=== PATIENT | male | born 1960 | race Caucasian/White ===

== ENCOUNTER → 2017-03-16 | Outpatient (CLI) | payer OTHER ==
[~2017-03-16] VITALS: Ht 175.3 cm; Wt 87.5 kg
[~2017-03-16] MED LIST: LIDOCAINE 2% INJ 100 MG/5 ML SDV (FOR ANES.) As Ordered ONE; NS 1,000 ML IV ONE; PHENYLephrine HCL 500 MCG/5 ML (100MCG/ML) SYRINGE (J2370) As Ordered ONE; PROPOFOL 200 MG/20 ML VIAL As Ordered ONE; [UNRECOGNIZED DRUG - OTHER] TD
--- NOTE | 2017-03-16 09:47 | ROOR ---
Patient Name: Gerson Guzman Procedure Date: 03/16/2017 9:21 AM Date of : 1960 Age: 56 Room: [facility] Gender: Male Note Status: Finalized Procedure: Colonoscopy Indications: Screening for colorectal malignant neoplasm Providers: Seun JONES MD Referring MD: Caity MAHER NP Requesting Provider: Medicines: Monitored Anesthesia Care Complications: No immediate complications. Procedure: Pre-Anesthesia Assessment: - The heart rate, respiratory rate, oxygen saturations, blood pressure, adequacy of pulmonary ventilation, and response to care were monitored throughout the procedure. The Colonoscope was introduced through the anus and advanced to the cecum, identified by appendiceal orifice and ileocecal valve. The colonoscopy was performed without difficulty. The patient tolerated the procedure well. The quality of the bowel preparation was good. Findings: The perianal and digital rectal examinations were normal. Two sessile polyps were found in the ascending colon. The polyps were 4 to 5 mm in size. These polyps were removed with a cold snare. Resection and retrieval were complete. Three pedunculated and sessile polyps were found in the sigmoid colon. The polyps were 5 to 6 mm in size. These polyps were removed with a cold snare. Resection and retrieval were complete. Small Internal Hemorrhoids. The exam was otherwise without abnormality on direct and retroflexion views. Impression: - Two 4 to 5 mm polyps in the ascending colon, removed with a cold snare. Resected and retrieved. - Three 5 to 6 mm polyps in the sigmoid colon, removed with a cold snare. Resected and retrieved. - Small Internal Hemorrhoids. - The examination was otherwise normal on direct and retroflexion views. Recommendation: - Repeat colonoscopy in 3 years for surveillance. Seun Jones MD Seun JONES MD 03/16/2017 9:46:45 AM This report has been signed electronically. Number of Addenda: 0 Note Initiated On: 03/16/2017 9:21 AM Estimated Blood Loss: Estimated blood loss: none.
[2017-03-16 10:05] VITALS: BP 135/82
== END ==
LOC: M OPP 08:19
PROVIDERS: ATTEND Internal Medicine Gastroenterology
DX: Z12.11 Encounter for screening for malignant neoplasm of colon (principal); D12.2 Benign neoplasm of ascending colon; D12.5 Benign neoplasm of sigmoid colon; K64.8 Other hemorrhoids; F17.210 Nicotine dependence, cigarettes, uncomplicated
CPT/HCPCS: 45385; 88305; J2370

== ENCOUNTER → 2017-05-10 | Outpatient (REF) | payer OTHER ==
[~2017-05-10] MED LIST changes: -LIDOCAINE 2% INJ 100 MG/5 ML SDV (FOR ANES.) As Ordered ONE; +NICO1KIT TD; -NS 1,000 ML IV ONE; -PHENYLephrine HCL 500 MCG/5 ML (100MCG/ML) SYRINGE (J2370) As Ordered ONE; -PROPOFOL 200 MG/20 ML VIAL As Ordered ONE; -[UNRECOGNIZED DRUG - OTHER] TD
[2017-05-10 13:52] LABS: MEAN CORPUSCULAR HEMOGLOBIN 33.2 pg (27.0-33.0); MEAN CORPUSCULAR HGB CONC 33.8 g/dl (32.0-36.5); MEAN CORPUSCULAR VOLUME 98.5 fl (80.0-96.0); RED CELL DISTRIBUTION WIDTH 12.6 % (11.5-14.5); WHITE BLOOD COUNT 5.6 K/mm3 (4.0-10.0)
[2017-05-10 14:41] LABS: ALBUMIN 3.5 GM/DL (3.2-5.2); ALBUMIN/GLOBULIN RATIO 1.21 (1.00-1.93); ALKALINE PHOSPHATASE 109 U/L (45-117); ALT/SGPT 17 U/L (12-78); ANION GAP 3 MEQ/L (8-16); AST/SGOT 10 U/L (15-37); BILIRUBIN,TOTAL 0.5 MG/DL (0.2-1.0); BLOOD UREA NITROGEN 13 MG/DL (7-18); CALCIUM LEVEL 8.9 MG/DL (8.5-10.1); CARBON DIOXIDE LEVEL 28 MEQ/L (21-32); CHLORIDE LEVEL 110 MEQ/L (98-107); CREATININE FOR GFR 0.93 MG/DL (0.70-1.30); GLOMERULAR FILTRATION RATE > 60.0 (>56); GLUCOSE, FASTING 100 MG/DL (70-105); POTASSIUM SERUM 4.7 MEQ/L (3.5-5.1); SODIUM LEVEL 141 MEQ/L (136-145); TOTAL PROTEIN 6.4 GM/DL (6.4-8.2)
== END ==
LOC: M LAB REF 13:29
PROVIDERS: ATTEND Nurse Practitioner Family
DX: Z12.11 Encounter for screening for malignant neoplasm of colon (principal); Z13.29 Encounter for screening for other suspected endocrine disorder; Z13.0 Encounter for screening for diseases of the blood and blood-forming organs and certain disorders involving the immune mechanism

== ENCOUNTER 2017-10-19 22:38 | Emergency (ER) | payer OTHER ==
[~2017-10-19] VITALS: Ht 175.3 cm; Wt 84.1 kg
[2017-10-20] MEDS ORDERED: hydrOXYzine 25 MG TAB PO ONE (04:30)
[2017-10-20] MEDS ORDERED: HYDR-3363 PO (04:31)
[2017-10-20 04:36] VITALS: BP 149/92
== END 2017-10-20 04:42 | disposition home or self-care (01) ==
LOC: M ED 22:38
DX: L29.9 Pruritus, unspecified (principal)

== ENCOUNTER 2017-11-03 00:29 | Emergency (ER) | payer OTHER ==
[2017-11-03] MEDS: predniSONE 20 MG TAB PO (01:17)
[2017-11-03] MEDS: diphenhydrAMINE 25 MG CAP PO (01:17)
== END 2017-11-03 01:46 | disposition home or self-care (01) ==
LOC: M ED 00:29
DX: L21.9 Seborrheic dermatitis, unspecified (principal)
CPT/HCPCS: 99282

== ENCOUNTER → 2017-12-06 | Outpatient (REF) | payer OTHER ==
[2017-12-06 19:52] LABS: BASO % 0.9 % (0.0-1.0); EOS # 0.2 10^3/uL (0.0-0.50); EOS % 3.3 % (0.0-3.0); HEMATOCRIT 46.5 % (42.0-52.0); HEMOGLOBIN 15.5 g/dl (14.0-18.0); IMMATURE GRANULOCYTE % 0.7 % (0-3.0); LYMPH # 1.8 10^3/uL (1.5-4.5); LYMPH % 40.2 % (24.0-44.0); MEAN CORPUSCULAR HEMOGLOBIN 31.8 pg (27.0-33.0); MEAN CORPUSCULAR HGB CONC 33.3 g/dl (32.0-36.5); MEAN CORPUSCULAR VOLUME 95.5 fl (80.0-96.0); MONO # 0.5 10^3/uL (0.0-0.8); MONO % 11.9 % (0.0-5.0); PLATELET COUNT, AUTOMATED 216 10^3/uL (150-450); RED BLOOD COUNT 4.87 10^6/uL (4.30-6.10); RED CELL DISTRIBUTION WIDTH 12.5 % (11.5-14.5); WHITE BLOOD COUNT 4.6 10^3/uL (4.0-10.0)
[2017-12-06 20:46] LABS: ALBUMIN 3.7 GM/DL (3.2-5.2); ALBUMIN/GLOBULIN RATIO 1.12 (1.00-1.93); ALKALINE PHOSPHATASE 115 U/L (45-117); ALT/SGPT 19 U/L (12-78); ANION GAP 8 MEQ/L (8-16); AST/SGOT 21 U/L (7-37); BILIRUBIN,TOTAL 0.6 MG/DL (0.2-1.0); BLOOD UREA NITROGEN 5 MG/DL (7-18); CARBON DIOXIDE LEVEL 27 MEQ/L (21-32); CHLORIDE LEVEL 105 MEQ/L (98-107); CREATININE FOR GFR 0.92 MG/DL (0.70-1.30); GLOMERULAR FILTRATION RATE > 60.0 (>56); GLUCOSE, FASTING 81 MG/DL (70-100); POTASSIUM SERUM 5.1 MEQ/L (3.5-5.1); SODIUM LEVEL 140 MEQ/L (136-145)
[2017-12-06 21:23] LABS: ERYTHROCYTE SEDIMENTATION RATE 6 mm/hr (0-20)
== END ==
LOC: M LAB REF 19:05
DX: K28.2 Acute gastrojejunal ulcer with both hemorrhage and perforation (principal)
CPT/HCPCS: 85652

== ENCOUNTER → 2017-12-17 | Outpatient (CLI) | payer OTHER ==
[2017-12-17 11:05] LABS: RHEUMATOID FACTOR QUANT < 10.0 IU/ML (0-15.0)
[2017-12-17 11:05] LABS: CPK CREATINE PHOSPHOKINASE 62 U/L (39-308)
[2017-12-18 14:11] LABS: ALDOLASE 4.6 U/L (3.3-10.3)
[2017-12-18 14:11] LABS: ANTINUCLEAR ANTIBODIES DIRECT Negative (Negative)
== END ==
LOC: M LAB 09:59
DX: L28.2 Other prurigo (principal)
CPT/HCPCS: 82550

== ENCOUNTER 2018-01-17 01:28 | Emergency (ER) | payer OTHER | END 2018-01-17 05:14 | disposition left against medical advice (07) | LOC: M ED 05:14 | DX: Z53.29 Procedure and treatment not carried out because of patient's decision for other reasons (principal) ==

== ENCOUNTER → 2018-04-30 | Outpatient (REF) | LOC: M SMT 09:10 | DX: Z02.71 Encounter for disability determination (principal) ==

== ENCOUNTER → 2020-10-07 | Outpatient (REF) | payer OTHER ==
[~2020-10-07] MED LIST changes: +BENA25CA4 PO; +CEPH500C; +FLUO0.0112; +HYDR-3363; +HYDR-3363 PO; +PRED20TA; +PRED20TA PO
[2020-10-07 11:57] LABS: BASO % 0.5 % (0.0-1.0); EOS # 0.2 10^3/uL (0.0-0.5); EOS % 2.2 % (0.0-3.0); HEMATOCRIT 43.7 % (42.0-52.0); HEMOGLOBIN 14.1 g/dl (13.5-17.5); LYMPH # 2.3 10^3/uL (1.5-5.0); LYMPH % 28.8 % (24.0-44.0); MEAN CORPUSCULAR HEMOGLOBIN 31.5 pg (27.0-33.0); MEAN CORPUSCULAR HGB CONC 32.3 g/dl (32.0-36.5); MEAN CORPUSCULAR VOLUME 97.8 fl (80.0-96.0); MONO # 0.7 10^3/uL (0.0-0.8); MONO % 8.8 % (0.0-5.0); NEUTROPHILS # 4.7 10^3/uL (1.5-8.5); NEUTROPHILS % 59.3 % (36.0-66.0); PLATELET COUNT, AUTOMATED 185 10^3/uL (150-450); RED BLOOD COUNT 4.47 10^6/uL (4.30-6.10); WHITE BLOOD COUNT 7.9 10^3/uL (4.0-10.0)
[2020-10-07 14:15] LABS: ALBUMIN 3.7 GM/DL (3.2-5.2); ALT/SGPT 17 U/L (12-78); BILIRUBIN,TOTAL 0.5 MG/DL (0.2-1.0); BLOOD UREA NITROGEN 11 MG/DL (7-18); CALCIUM LEVEL 9.3 MG/DL (8.8-10.2); CARBON DIOXIDE LEVEL 29 MEQ/L (21-32); CHLORIDE LEVEL 108 MEQ/L (98-107); CHOLESTEROL LEVEL 218 MG/DL (<200); CHOLESTEROL RISK RATIO 4.541 (<5); CREATININE FOR GFR 1.01 MG/DL (0.70-1.30); FREE T4 1.16 NG/DL (0.76-1.46); GLOMERULAR FILTRATION RATE > 60.0 (>49); GLUCOSE, FASTING 88 MG/DL (70-100); HDL CHOLESTEROL 48 MG/DL (>40); LDL CHOLESTEROL 144 MG/DL (<100); NON-HDL-C 170 MG/DL; POTASSIUM SERUM 4.4 MEQ/L (3.5-5.1); SODIUM LEVEL 141 MEQ/L (136-145); TOTAL 25(OH) VITAMIN D 18.3 NG/ML (30.0-100.0); TOTAL PROTEIN 6.6 GM/DL (6.4-8.2); TRIGLYCERIDES LEVEL 131 MG/DL (<150)
[2020-10-07 15:56] LABS: HEMOGLOBIN A1c 5.5 %
[2020-10-08 23:10] LABS: PSA TOTAL 1.1 ng/mL (0.0-4.0)
== END ==
LOC: M LAB REF 11:15
PROVIDERS: ATTEND Nurse Practitioner Family
DX: F17.200 Nicotine dependence, unspecified, uncomplicated (principal); Z13.9 Encounter for screening, unspecified; Z13.228 Encounter for screening for other metabolic disorders

== ENCOUNTER 2020-10-16 05:23 | Emergency (ER) | payer OTHER ==
[~2020-10-16] VITALS: Ht 175.3 cm; Wt 87.0 kg
[2020-10-16] MEDS ORDERED: LIDOCAINE 1% MDV 20ML VIAL SC ONE (06:30)
[2020-10-16] MEDS ORDERED: BOOSTRIX/ADACEL VACCINE (DIPHTH/PERTUSS/ACELL/TETANUS) 0.5ML SYR IM ONE (06:30)
--- NOTE | 2020-10-16 07:00 | REPVR ---
PROCEDURE INFORMATION: Exam: CT Head Without Contrast Exam date and time: 10/16/2020 5:37 AM Age: 59 years old Clinical indication: Injury or trauma; Other: Hit by falling pallet; Work related; Concussion/head injury and laceration; Without residual foreign body; Forehead and other: Bridge of nose TECHNIQUE: Imaging protocol: Computed tomography of the head without contrast. Radiation optimization: All CT scans at this facility use at least one of these dose optimization techniques: automated exposure control; mA and/or kV adjustment per patient size (includes targeted exams where dose is matched to clinical indication); or iterative reconstruction. COMPARISON: No relevant prior studies available. FINDINGS: Brain: The cortical/white matter interfaces are preserved throughout the brain. There is no evidence of intracranial hemorrhage. Cerebral ventricles: The ventricular system is normal in size and configuration. Bones/joints: No acute fractures of the skull are identified. The nasal bones are not optimally assessed on this exam, but no definite fracture is identified. Paranasal sinuses: There is complete opacification of the partially visualized bilateral maxillary sinuses. The bilateral maxillary sinuses appear somewhat underdeveloped. The medial lamb appear incomplete, likely from previous medial antrectomies. Mastoid air cells: The mastoid air cells are clear. Orbital cavity: The orbits appear unremarkable. Soft tissues: There is soft tissue swelling at the nasoethmoid region. IMPRESSION: 1. No evidence of acute intracranial injury. 2. Soft tissue swelling in the nasoethmoid region consistent with superficial hematoma/contusion. No definite associated fracture, but the nasal and facial bones are not optimally assessed on this exam. 3. Complete opacification of the partially visualized bilateral maxillary sinuses, probably related to chronic sinusitis. Electronically signed by: Brooke Wall On 10/16/2020 07:00:24 AM
[2020-10-16] MEDS ORDERED: KEFL500C17 PO (07:24)
[2020-10-16] MEDS ORDERED: NEOSPORIN OINT 0.9 GM PKT TOP ONE (07:30)
[2020-10-16] MEDS ORDERED: CEPHALEXIN 500 MG CAP PO ONE (07:30)
[2020-10-16 08:46] VITALS: BP 112/70
== END 2020-10-16 09:14 | disposition home or self-care (01) ==
LOC: M ED 05:23
DX: S01.21XA Laceration without foreign body of nose, initial encounter (principal); S00.81XA Abrasion of other part of head, initial encounter; W22.8XXA Striking against or struck by other objects, initial encounter; Y92.89 Other specified places as the place of occurrence of the external cause; Y99.0 Civilian activity done for income or pay

== ENCOUNTER 2020-10-27 10:29 | Emergency (ER) | payer OTHER ==
[~2020-10-27] VITALS: Ht 175.3 cm; Wt 84.5 kg
[2020-10-27 10:29] VITALS: BP 136/89
[~2020-10-27 10:29] MED LIST changes: +KEFL500C17 PO
== END 2020-10-27 11:35 | disposition home or self-care (01) ==
LOC: M ED 10:29
DX: Z48.02 Encounter for removal of sutures (principal); F17.210 Nicotine dependence, cigarettes, uncomplicated

== ENCOUNTER → 2021-08-02 | Outpatient (CLI) | payer OTHER ==
--- NOTE | 2021-08-02 12:16 | REP ---
INDICATION: NICOTINE DEPEND. COMPARISON: 12/13/2017 the only prior and also low-dose screening CT of the lungs TECHNIQUE: Axial noncontrast images from the thoracic inlet to the upper abdomen using low-dose lung screening technique (LDCT). As per the protocol only lung window images were sent to the read station for interpretation. FINDINGS: There is minimal biapical pleuroparenchymal scarring status quo. No new abnormal nodules, masses, or opacities have developed. There is mild cylindrical bronchiectasis status quo. Grossly, the mediastinum and pulmonary kadie are unchanged. Grossly, the imaged upper abdomen and imaged osseous structures are unchanged. IMPRESSION: Stable lung rads category [address] low-dose screening CT examination of the lungs. Follow-up as per the revised Fleischner society criteria. <Electronically signed by Noe Castaneda > 08/02/21 [id number]
== END ==
LOC: M RAD 11:23
PROVIDERS: ATTEND Nurse Practitioner Family
DX: Z12.2 Encounter for screening for malignant neoplasm of respiratory organs (principal); F17.200 Nicotine dependence, unspecified, uncomplicated

== ENCOUNTER → 2022-04-11 | Outpatient (REF) | payer OTHER ==
[2022-04-11 12:53] LABS: BASO # 0.1 10^3/uL (0.0-0.2); BASO % 0.9 % (0.0-1.0); EOS # 0.1 10^3/uL (0.0-0.5); EOS % 2.2 % (0.0-3.0); HEMATOCRIT 45.9 % (42.0-52.0); HEMOGLOBIN 15.2 g/dl (13.5-17.5); LYMPH # 1.8 10^3/uL (1.5-5.0); LYMPH % 33.9 % (24.0-44.0); MEAN CORPUSCULAR HEMOGLOBIN 33.5 pg (27.0-33.0); MEAN CORPUSCULAR HGB CONC 33.1 g/dl (32.0-36.5); MEAN CORPUSCULAR VOLUME 101.1 fl (80.0-96.0); MONO # 0.6 10^3/uL (0.0-0.8); MONO % 10.2 % (2.0-8.0); NEUTROPHILS # 2.8 10^3/uL (1.5-8.5); NEUTROPHILS % 52.2 % (36.0-66.0); PLATELET COUNT, AUTOMATED 173 10^3/uL (150-450); RED BLOOD COUNT 4.54 10^6/uL (4.30-6.10); WHITE BLOOD COUNT 5.4 10^3/uL (4.0-10.0)
[2022-04-11 13:36] LABS: ALBUMIN 3.5 GM/DL (3.2-5.2); ALT/SGPT 20 U/L (12-78); BILIRUBIN,TOTAL 0.5 MG/DL (0.2-1.0); BLOOD UREA NITROGEN 9 MG/DL (7-18); CALCIUM LEVEL 8.7 MG/DL (8.8-10.2); CARBON DIOXIDE LEVEL 27 MEQ/L (21-32); CHLORIDE LEVEL 111 MEQ/L (98-107); CHOLESTEROL LEVEL 172 MG/DL (<200); CHOLESTEROL RISK RATIO 3.822 (<5); CREATININE FOR GFR 0.86 MG/DL (0.70-1.30); GLOMERULAR FILTRATION RATE > 60.0 (>49); GLUCOSE, FASTING 96 MG/DL (70-100); HDL CHOLESTEROL 45 MG/DL (>40); LDL CHOLESTEROL 108 MG/DL (<100); NON-HDL-C 127 MG/DL; POTASSIUM SERUM 4.4 MEQ/L (3.5-5.1); SODIUM LEVEL 141 MEQ/L (136-145); TOTAL PROTEIN 6.6 GM/DL (6.4-8.2); TRIGLYCERIDES LEVEL 95 MG/DL (<150)
== END ==
LOC: M SFHCADAM 08:02
PROVIDERS: ATTEND Family Medicine
DX: Z00.00 Encounter for general adult medical examination without abnormal findings (principal); E55.9 Vitamin D deficiency, unspecified

== ENCOUNTER → 2022-08-24 | Outpatient (CLI) | payer OTHER | LOC: M RAD 08:42 | PROVIDERS: ATTEND Family Medicine | DX: Z12.2 Encounter for screening for malignant neoplasm of respiratory organs (principal); F17.210 Nicotine dependence, cigarettes, uncomplicated; R91.8 Other nonspecific abnormal finding of lung field ==

== ENCOUNTER → 2022-10-02 | Outpatient (CLI) | payer OTHER ==
[~2022-10-02] MED LIST changes: +ATOR1TAB21 PO; +VITA200032 PO
== END ==
LOC: M LABSMTC 10:00
PROVIDERS: ATTEND Anesthesiology
DX: Z01.812 Encounter for preprocedural laboratory examination (principal); Z20.822 Contact with and (suspected) exposure to COVID-19

== ENCOUNTER 2022-10-05 08:21 | Day surgery (SDC) | payer OTHER ==
[~2022-10-05] VITALS: Ht 175.3 cm; Wt 89.3 kg
[~2022-10-05 08:21] MED LIST changes: +NS 1,000 ML IV ONE
[2022-10-05] MEDS ORDERED: propofoL 200 MG/20 ML VIAL As Ordered ONE (10:06)
[2022-10-05 10:42] VITALS: BP 120/76
== END 2022-10-05 10:53 | disposition home or self-care (01) ==
LOC: M OPP 08:21
PROVIDERS: ATTEND Internal Medicine Gastroenterology
DX: Z12.11 Encounter for screening for malignant neoplasm of colon (principal); Z86.010 Personal history of colon polyps; D12.5 Benign neoplasm of sigmoid colon; D12.3 Benign neoplasm of transverse colon; D12.0 Benign neoplasm of cecum; K64.8 Other hemorrhoids; F17.200 Nicotine dependence, unspecified, uncomplicated; Z79.02 Long term (current) use of antithrombotics/antiplatelets; E78.00 Pure hypercholesterolemia, unspecified

== ENCOUNTER → 2023-08-31 | Outpatient (REF) | payer OTHER ==
[~2023-08-31] MED LIST changes: -NS 1,000 ML IV ONE
[2023-08-31 13:36] LABS: BASO # 0.1 10^3/uL (0.0-0.2); BASO % 0.9 % (0.0-1.0); EOS # 0.1 10^3/uL (0.0-0.5); EOS % 2.2 % (0.0-3.0); HEMATOCRIT 46.7 % (42.0-52.0); HEMOGLOBIN 15.5 g/dl (13.5-17.5); LYMPH # 2.1 10^3/uL (1.5-5.0); LYMPH % 37.6 % (24.0-44.0); MEAN CORPUSCULAR HEMOGLOBIN 32.8 pg (27.0-33.0); MEAN CORPUSCULAR HGB CONC 33.2 g/dl (32.0-36.5); MEAN CORPUSCULAR VOLUME 98.9 fl (80.0-96.0); MONO # 0.6 10^3/uL (0.0-0.8); MONO % 11.5 % (2.0-8.0); NEUTROPHILS # 2.6 10^3/uL (1.5-8.5); NEUTROPHILS % 47.3 % (36.0-66.0); PLATELET COUNT, AUTOMATED 191 10^3/uL (150-450); RED BLOOD COUNT 4.72 10^6/uL (4.30-6.10); WHITE BLOOD COUNT 5.6 10^3/uL (4.0-10.0)
[2023-08-31 13:46] LABS: ALBUMIN 3.7 G/DL (3.2-5.2); ALKALINE PHOSPHATASE 93 U/L (46-116); ALT/SGPT 19 U/L (7.0-40); AST/SGOT 16 U/L (<34); BILIRUBIN,TOTAL 0.5 MG/DL (0.3-1.2); BLOOD UREA NITROGEN 10 MG/DL (9-23); CALCIUM LEVEL 9.2 MG/DL (8.3-10.6); CARBON DIOXIDE LEVEL 29 MMOL/L (20-31); CHLORIDE LEVEL 104 MMOL/L (98-107); CHOLESTEROL LEVEL 163 MG/DL (<200); CHOLESTEROL RISK RATIO 4.22 (<5); CREATININE FOR GFR 0.88 MG/DL (0.70-1.30); GLOMERULAR FILTRATION RATE > 60.0 (>49); GLUCOSE, FASTING 76 MG/DL (74-106); HDL CHOLESTEROL 38.6 MG/DL (>40); LDL CHOLESTEROL 104.8 MG/DL (<100); NON-HDL-C 124.4 MG/DL; POTASSIUM SERUM 4.3 MMOL/L (3.5-5.1); SODIUM LEVEL 138 MMOL/L (136-145); THYROID STIMULATING HORMONE 1.604 uIU/ML (0.55-4.78); TOTAL PROTEIN 6.5 G/DL (5.7-8.2); TRIGLYCERIDES LEVEL 98 MG/DL (<150)
== END ==
LOC: M LABDRWAD 12:53
PROVIDERS: ATTEND Family Medicine
DX: Z00.00 Encounter for general adult medical examination without abnormal findings (principal)

== ENCOUNTER → 2023-11-12 | Outpatient (CLI) | payer OTHER | LOC: M RAD 07:59 | PROVIDERS: ATTEND Family Medicine | DX: F17.210 Nicotine dependence, cigarettes, uncomplicated (principal) ==

== ENCOUNTER → 2025-01-15 | Outpatient (REF) | payer MEDICARE ==
[2025-01-15 14:15] LABS: BASO # 0.1 10^3/uL (0.0-0.2); BASO % 0.8 % (0.0-1.0); EOS # 0.2 10^3/uL (0.0-0.5); EOS % 2.5 % (0.0-3.0); HEMATOCRIT 46.8 % (42.0-52.0); HEMOGLOBIN 15.4 g/dl (13.5-17.5); LYMPH # 1.7 10^3/uL (1.5-5.0); LYMPH % 26.8 % (24.0-44.0); MEAN CORPUSCULAR HEMOGLOBIN 32.9 pg (27.0-33.0); MEAN CORPUSCULAR HGB CONC 32.9 g/dl (32.0-36.5); MONO # 0.6 10^3/uL (0.0-0.8); NEUTROPHILS # 3.7 10^3/uL (1.5-8.5); NEUTROPHILS % 59.4 % (36.0-66.0); PLATELET COUNT, AUTOMATED 171 10^3/uL (150-450); RED BLOOD COUNT 4.68 10^6/uL (4.30-6.10); WHITE BLOOD COUNT 6.3 10^3/uL (4.0-10.0)
[2025-01-15 14:23] LABS: ALBUMIN 3.4 G/DL (3.2-5.2); ALKALINE PHOSPHATASE 92 U/L (40-129); ALT/SGPT 13 U/L (7.0-40); AST/SGOT 13 U/L (<34); BILIRUBIN,TOTAL 0.3 MG/DL (0.3-1.2); BLOOD UREA NITROGEN 9 MG/DL (9-23); CALCIUM LEVEL 9.4 MG/DL (8.3-10.6); CARBON DIOXIDE LEVEL 29 MMOL/L (20-31); CHLORIDE LEVEL 110 MMOL/L (98-107); CHOLESTEROL LEVEL 162 MG/DL (<200); CHOLESTEROL RISK RATIO 3.89 (<5); GLOMERULAR FILTRATION RATE > 60.0 (>49); GLUCOSE, FASTING 86 MG/DL (74-106); HDL CHOLESTEROL 41.6 MG/DL (>40); LDL CHOLESTEROL 101.6 MG/DL (<100); NON-HDL-C 120.4 MG/DL; POTASSIUM SERUM 4.7 MMOL/L (3.5-5.1); SODIUM LEVEL 148 MMOL/L (136-145); TOTAL PROTEIN 6.4 G/DL (5.7-8.2); TRIGLYCERIDES LEVEL 94 MG/DL (<150)
[2025-01-15 14:24] LABS: FREE T4 1.03 NG/DL (0.89-1.76)
== END ==
LOC: M SFHCADAM 07:55
PROVIDERS: ATTEND Family Medicine
DX: Z00.00 Encounter for general adult medical examination without abnormal findings (principal); Z79.899 Other long term (current) drug therapy

== ENCOUNTER → 2025-01-16 | Outpatient (CLI) | payer MEDICARE | LOC: M RAD 07:59 | PROVIDERS: ATTEND Family Medicine | DX: Z13.6 Encounter for screening for cardiovascular disorders (principal) ==

== ENCOUNTER → 2025-01-22 | Outpatient (CLI) | payer MEDICARE | LOC: M RAD 06:49 | PROVIDERS: ATTEND Family Medicine | DX: Z12.2 Encounter for screening for malignant neoplasm of respiratory organs (principal); F17.210 Nicotine dependence, cigarettes, uncomplicated ==

== ENCOUNTER → 2025-02-04 | Outpatient (CLI) | payer MEDICARE | LOC: M CARPUL 07:28 | PROVIDERS: ATTEND Family Medicine | DX: J44.9 Chronic obstructive pulmonary disease, unspecified (principal) ==

== ENCOUNTER 2025-10-24 13:20 | Inpatient (IN) | payer MEDICARE ==
[~2025-10-24] VITALS: Ht 180.3 cm; Wt 97.9 kg
[2025-10-24] MEDS: ALBUTEROL SULFATE 2.5 MG/0.5 ML INH CONCENTRATE NEB SOLN NEB ONE (14:28)
[2025-10-24] MEDS: IPRATROPIUM 0.5 MG/ALBUTEROL 2.5 MG INH SOL UD 3 ML NEB ONE (14:29)
[2025-10-24 14:30] LABS: BASO # 0.0 10^3/uL (0.0-0.2); BASO % 0.3 % (0.0-1.0); EOS # 0.1 10^3/uL (0.0-0.5); EOS % 1.0 % (0.0-3.0); LYMPH # 1.1 10^3/uL (1.5-5.0); LYMPH % 15.8 % (24.0-44.0); MONO # 0.6 10^3/uL (0.0-0.8); MONO % 8.3 % (2.0-8.0); NEUTROPHILS # 5.3 10^3/uL (1.5-8.5); NEUTROPHILS % 73.8 % (36.0-66.0); PLATELET COUNT, AUTOMATED 291 10^3/uL (150-450)
[2025-10-24 15:05] LABS: ALT/SGPT 49 U/L (7.0-40); AST/SGOT 50 U/L (<34); CALCIUM LEVEL 9.0 MG/DL (8.3-10.6); CARBON DIOXIDE LEVEL 29 MMOL/L (20-31); CHLORIDE LEVEL 103 MMOL/L (98-107); CREATININE FOR GFR 0.74 MG/DL (0.70-1.30); GLOMERULAR FILTRATION RATE > 90.0 (>49); POTASSIUM SERUM 4.3 MMOL/L (3.5-5.1); SODIUM LEVEL 138 MMOL/L (136-145)
[2025-10-24 15:07] LABS: THYROXINE (T4) 8.6 UG/DL (4.5-10.9)
[2025-10-24] MEDS ORDERED: ISOVUE-370 76% 100 ML VIAL As Ordered ONE (16:39)
[2025-10-24] MEDS ORDERED: ACET-683 PO (19:07)
[2025-10-24] MEDS ORDERED: ATOR40TA75 PO (19:07)
[2025-10-24] MEDS ORDERED: HOME MED LIST COMPLETE! XX SCH (19:10)
[2025-10-24] MEDS ORDERED: IPRATROPIUM 0.5 MG/ALBUTEROL 2.5 MG INH SOL UD 3 ML NEB PRN (19:40)
[2025-10-24] MEDS ORDERED: ACETAMINOPHEN 325 MG TAB PO PRN (19:40)
[2025-10-24] MEDS ORDERED: MOM 30 ML SUSPENSION UDC PO PRN (19:40)
[2025-10-24] MEDS ORDERED: traZODone 50 MG TAB PO PRN (19:40)
[2025-10-24] MEDS ORDERED: ONDANSETRON 4MG/2ML VIAL IV PRN (19:40)
[2025-10-24] MEDS: cefTRIAXone SOD 2 GM in DEXTROSE 5% (D5W) ADV/MINI-BAG 50 ML IV SCH (20:33)
[2025-10-24] MEDS: NS (Normal Saline) 0.9% 1,000 ML IV SCH (20:33)
[2025-10-24 21:08] VITALS: BP 134/74; TEMP 98; O2SAT 96
[2025-10-24] MEDS: DOXYCYCLINE HYCLATE 100 MG in DEXTROSE 5% (D5W) MINI-BAG PLU 100 ML IV SCH (21:42)
[2025-10-25 04:56] VITALS: BP 111/70; TEMP 98; O2SAT 90
[2025-10-25 05:55] LABS: PLATELET COUNT, AUTOMATED 279 10^3/uL (150-450)
[2025-10-25 06:26] LABS: ALT/SGPT 43 U/L (7.0-40); AST/SGOT 35 U/L (<34); CALCIUM LEVEL 8.8 MG/DL (8.3-10.6); CARBON DIOXIDE LEVEL 29 MMOL/L (20-31); CHLORIDE LEVEL 104 MMOL/L (98-107); CREATININE FOR GFR 0.75 MG/DL (0.70-1.30); GLOMERULAR FILTRATION RATE > 90.0 (>49); MAGNESIUM LEVEL 2.1 MG/DL (1.8-2.4); POTASSIUM SERUM 4.4 MMOL/L (3.5-5.1); SODIUM LEVEL 140 MMOL/L (136-145)
[2025-10-25] MEDS ORDERED: IPRATROPIUM 0.5 MG/ALBUTEROL 2.5 MG INH SOL UD 3 ML NEB PRN (07:05)
[2025-10-25] MEDS: IPRATROPIUM 0.5 MG/ALBUTEROL 2.5 MG INH SOL UD 3 ML NEB SCH (07:56)
[2025-10-25 08:08] LABS: HEPATITIS C VIRUS ABY INDEX 0.10 INDEX (<0.8)
[2025-10-25] MEDS: PANTOPRAZOLE 40MG TAB PO SCH (08:52)
[2025-10-25] MEDS: ENOXAPARIN 40 MG/0.4 ML SYRINGE (J1650 PER 10MG) SC SCH (08:52)
[2025-10-25] MEDS ORDERED: OSELTAMIVIR PHOSPHATE 75 MG CAP PO SCH (09:00)
[2025-10-25] MEDS: guaiFENesin ER TABLET 600 MG TAB PO SCH (09:56)
[2025-10-25 12:00] VITALS: BP 122/71; TEMP 98.3; O2SAT 94
[2025-10-25 19:49] VITALS: BP 113/57; TEMP 98.7; O2SAT 92
[2025-10-25] MEDS: DOXYCYCLINE HYCLATE 100 MG TABLET PO SCH (20:13)
[2025-10-26 04:07] VITALS: BP 110/62; TEMP 98.4; O2SAT 95
[2025-10-26 04:27] VITALS: O2SAT 91
[2025-10-26 06:55] LABS: BASO # 0.0 10^3/uL (0.0-0.2); BASO % 0.1 % (0.0-1.0); EOS # 0.0 10^3/uL (0.0-0.5); EOS % 0.0 % (0.0-3.0); LYMPH # 1.0 10^3/uL (1.5-5.0); LYMPH % 10.1 % (24.0-44.0); MONO # 0.3 10^3/uL (0.0-0.8); MONO % 3.3 % (2.0-8.0); NEUTROPHILS # 8.3 10^3/uL (1.5-8.5); NEUTROPHILS % 85.9 % (36.0-66.0); PLATELET COUNT, AUTOMATED 257 10^3/uL (150-450)
[2025-10-26 08:00] LABS: ALT/SGPT 34 U/L (7.0-40); AST/SGOT 25 U/L (<34); CALCIUM LEVEL 8.8 MG/DL (8.3-10.6); CARBON DIOXIDE LEVEL 28 MMOL/L (20-31); CHLORIDE LEVEL 104 MMOL/L (98-107); CREATININE FOR GFR 0.78 MG/DL (0.70-1.30); GLOMERULAR FILTRATION RATE > 90.0 (>49); MAGNESIUM LEVEL 2.3 MG/DL (1.8-2.4); POTASSIUM SERUM 4.7 MMOL/L (3.5-5.1); SODIUM LEVEL 139 MMOL/L (136-145)
[2025-10-26 09:00] VITALS: O2SAT 94
[2025-10-26 12:00] VITALS: BP 105/61; TEMP 98.7; O2SAT 92
[2025-10-26 13:26] VITALS: O2SAT 92
[2025-10-26] MEDS: ATORVASTATIN 20 MG TAB PO SCH (19:54)
[2025-10-26 20:01] VITALS: BP 126/69; TEMP 98.8; O2SAT 94
[2025-10-27 05:30] VITALS: BP 115/64; TEMP 98.7; O2SAT 95
[2025-10-27 08:23] LABS: BASO # 0.0 10^3/uL (0.0-0.2); BASO % 0.1 % (0.0-1.0); EOS # 0.0 10^3/uL (0.0-0.5); EOS % 0.0 % (0.0-3.0); LYMPH # 0.8 10^3/uL (1.5-5.0); LYMPH % 11.9 % (24.0-44.0); MONO # 0.2 10^3/uL (0.0-0.8); MONO % 3.1 % (2.0-8.0); NEUTROPHILS # 6.0 10^3/uL (1.5-8.5); NEUTROPHILS % 84.3 % (36.0-66.0); PLATELET COUNT, AUTOMATED 246 10^3/uL (150-450)
[2025-10-27 09:00] VITALS: O2SAT 93
[2025-10-27 09:32] LABS: ALT/SGPT 40 U/L (7.0-40); AST/SGOT 21 U/L (<34); CALCIUM LEVEL 9.1 MG/DL (8.3-10.6); CARBON DIOXIDE LEVEL 27 MMOL/L (20-31); CHLORIDE LEVEL 102 MMOL/L (98-107); CREATININE FOR GFR 0.73 MG/DL (0.70-1.30); GLOMERULAR FILTRATION RATE > 90.0 (>49); MAGNESIUM LEVEL 2.1 MG/DL (1.8-2.4); POTASSIUM SERUM 4.6 MMOL/L (3.5-5.1); SODIUM LEVEL 136 MMOL/L (136-145)
[2025-10-27 11:32] VITALS: O2SAT 92
[2025-10-27 12:00] VITALS: BP 113/69; TEMP 98.1; O2SAT 93
[2025-10-27] MEDS ORDERED: ROBI1LIQ9 PO (13:51)
[2025-10-27] MEDS ORDERED: ALBU2.5V10 INH (13:51)
[2025-10-27] MEDS ORDERED: AMOX875T2 PO (13:51)
[2025-10-27] MEDS ORDERED: SYMB16INH INH (13:51)
[2025-10-27] MEDS ORDERED: VENTAER INH (14:07)
[2025-10-27] MEDS ORDERED: ADVA1AER9 INH (15:06)
== END 2025-10-27 15:55 | disposition home or self-care (01) | DRG 190 ==
LOC: M ED 13:20 → M ED INP 19:37 → M MSPAV 21:02
PROVIDERS: ADMIT Internal Medicine; ATTEND Internal Medicine
DX: J44.1 Chronic obstructive pulmonary disease with (acute) exacerbation (principal); J96.01 Acute respiratory failure with hypoxia; J18.9 Pneumonia, unspecified organism; J10.00 Influenza due to other identified influenza virus with unspecified type of pneumonia; E78.5 Hyperlipidemia, unspecified; F17.210 Nicotine dependence, cigarettes, uncomplicated; J44.0 Chronic obstructive pulmonary disease with (acute) lower respiratory infection; Z79.899 Other long term (current) drug therapy; R74.01 Elevation of levels of liver transaminase levels